=== PATIENT | male | born 1990 | race Caucasian/White ===

== ENCOUNTER 2024-01-03 20:15 | Emergency (ER) | payer SELFPAY ==
[2024-01-03 20:18] VITALS: BP 139/87; PULSE 69; RESP 16; TEMP 36.6; O2SAT 90; BMI 29.8
--- NOTE | 2024-01-03 20:22 | CTR_ITS ---
PROCEDURE INFORMATION: Exam: CT Head Without Contrast Exam date and time: 01/03/2024 9:23 PM Age: 33 years old Clinical indication: Injury or trauma; Fall; Other: Pain; Additional info: Fall, head injury TECHNIQUE: Imaging protocol: Computed tomography of the head without contrast. Radiation optimization: All CT scans at this facility use at least one of these dose optimization techniques: automated exposure control; mA and/or kV adjustment per patient size (includes targeted exams where dose is matched to clinical indication); or iterative reconstruction. COMPARISON: No relevant prior studies available. RADIATION DOSE METRICS: Total DLP (mGy-cm): 701 FINDINGS: Brain: Normal. No hemorrhage. Unremarkable white matter. No mass effect. Cerebral ventricles: No ventriculomegaly. Paranasal sinuses: Visualized sinuses are unremarkable. No fluid levels. Mastoid air cells: Visualized mastoid air cells are well aerated. Bones: Unremarkable. No acute fracture. Soft tissues: Unremarkable. CT/CT head wo con* [id number] IMPRESSION: No acute intracranial abnormality.
--- NOTE | 2024-01-03 20:26 | W.ED.ALCOHOL ---
HPI - Alcohol General: Chief Complaint: Alcohol Stated Complaint: ETOH/SI Time Seen by Provider: 01/03/24 20:19 History of Present Illness: 33-year-old man with past emergency room by ambulance with alcohol intoxication and fall. Apparently fell about 2 feet off of the porch and landed on the ground and rolled down an embankment of about 15 feet. Apparently hit his head. He has some mild abrasions on his extremities. He still appears quite intoxicated. He is not complaining of any pain. He has an abrasion on his head. Related Data Allergies Allergy/AdvReac Type Severity Reaction Status Date / Time hydrocodone Allergy Unknown Verified 01/03/24 20:25 Review of Systems Narrative: Full review of systems unreliable as the patient is quite intoxicated Physical Exam Narrative: EXAM NARRATIVE: General: Alert, no acute distress. Skin: Warm, dry. Head: Normocephalic, atraumatic. Neck: Supple, trachea midline. Eye: Extraocular movements are intact. Ears, nose, mouth and throat: mucosa moist. Cardiovascular: Regular, Normal peripheral perfusion. Respiratory: Lungs are clear to auscultation, respirations are non-labored, breath sounds are equal, Symmetrical chest wall expansion. Gastrointestinal: Soft, Nontender, Non distended Musculoskeletal: Normal ROM, no deformity. Neurological: Alert and oriented, No focal neurological deficit observed. Psychiatric: Patient appears intoxicated Course Vital Signs: Vital signs: Vital Signs Temperature 97.9 F 01/03/24 20:18 Pulse Rate 74 01/03/24 20:54 Respiratory Rate 16 01/03/24 20:54 Blood Pressure 139/87 01/03/24 20:18 Pulse Oximetry 92 01/03/24 20:54 Oxygen Delivery Me thod Room Air 01/03/24 20:18 MDM - Alcohol Medical Decision Making CT head: No acute intracranial process. no intracranial hemorrhage, no evidence of infarct. no evidence of acute fracture.This was reviewed and interpreted by myself the ER physician. Lab work. Sodium is little low. No leukocytosis. No anemia. But had a level was 300. Assessment and plan: Head injury Alcohol intoxication - Discharged home - Discussed plan with patient. Answered any questions. - Evaluation and treatment of this problem were appropriate in the emergency setting. Lab Data 01/03/24 20:40 01/03/24 20:40 Laboratory Results WBC 6.49 10^3/uL (3.29-11.43) 01/03/24 20:40 RBC 5.02 10^6/uL (3.85-5.65) 01/03/24 20:40 Hgb 15.90 g/dL (11.27-16.99) 01/03/24 20:40 Hct 44.8 % (37-53) 01/03/24 20:40 MCV 89.2 fl (82-101) 01/03/24 20:40 MCH 31.7 pg (27-33) 01/03/24 20:40 MCHC 35.5 g/dL (30-55) 01/03/24 20:40 RDW 11.9 % (12.1-15.1) L 01/03/24 20:40 Plt Count 179 10^3/cmm (157-399) 01/03/24 20:40 MPV 9.7 fL (7.4-10.4) 01/03/24 20:40 Neut % (Auto) 60.2 % 01/03/24 20:40 Lymph % (Auto) 29.6 % 01/03/24 20:40 Ballard % (Auto) 8.8 % 01/03/24 20:40 Eos % (Auto) 0.8 % 01/03/24 20:40 Baso % (Auto) 0.3 % 01/03/24 20:40 Neut # (Auto) 3.91 10^3/uL (1.8-7.7) 01/03/24 20:40 Lymph # (Auto) 1.9 10^3/uL (0.8-4.8) 01/03/24 20:40 Ballard # (Auto) 0.6 10^3/uL (0.2-0.9) 01/03/24 20:40 Eos # (Auto) 0.1 10^3/uL (0.0-0.8) 01/03/24 20:40 Baso # (Auto) 0.0 10^3/uL (0.0-0.1) 01/03/24 20:40 Nucleated RBC % (auto) 0 % 01/03/24 20:40 Nucleated RBCs # 0.0 /100WBC 01/03/24 20:40 Sodium 132 mmol/L (136-145) L 01/03/24 20:40 Potassium 3.6 mmol/L (3.5-5.1) 01/03/24 20:40 Chloride 96 mmol/L (98-107) L 01/03/24 20:40 Carbon Dioxide 20 mmol/L (22-29) L 01/03/24 20:40 Anion Gap 19.6 (5-19) H 01/03/24 20:40 BUN 8 mg/dL (6-20) 01/03/24 20:40 Creatinine 0.8 mg/dL (0.7-1.2) 01/03/24 20:40 GFR Calculation 110.0 mL/min (90-130) 01/03/24 20:40 Glucose 108 mg/dL (65-115) 01/03/24 20:40 Calculated Osmolality 273 mOsm/kg (285-295) L 01/03/24 20:40 Calcium 8.2 mg/dL (8.5-10.5) L 01/03/24 20:40 Total Bilirubin 0.8 mg/dL (0.15-1.2) 01/03/24 20:40 AST 93 U/L (0-40) H 01/03/24 20:40 ALT 125 U/L (0-41) H 01/03/24 20:40 Alkaline Phosphatase 80 U/L (40-130) 01/03/24 20:40 Total Protein 7.2 g/dL (6.6-8.7) 01/03/24 20:40 Albumin 4.4 g/dL (3.5-5.2) 01/03/24 20:40 Globulin 2.8 g/dL (1.3-4.6) 01/03/24 20:40 Salicylates < 0.3 mg/dL (3-10) L 01/03/24 20:40 Urine Opiates Screen Negative ng/mL (Negative) 01/03/24 21:06 Acetaminophen < 5.0 ug/mL (10-30) L 01/03/24 20:40 Ur Barbiturates Screen Negative ng/mL (Negative) 01/03/24 21:06 Ur Phencyclidine Scrn Negative ng/mL (Negative) 01/03/24 21:06 Ur Amphetamines Screen Negative ng/mL (Negative) 01/03/24 21:06 U Benzodiazepines Scrn Negative ng/mL (Negative) 01/03/24 21:06 Urine Cocaine Screen Negative ng/mL (Negative) 01/03/24 21:06 U Marijuana (THC) Screen Negative ng/mL (Negative) 01/03/24 21:06 Ethyl Alcohol 302 mg/dL (0-10) H* 01/03/24 20:40 All radiology interpretation(s) finalized by discharge Discharge Plan Discharge Patient Disposition: Home Clinical Impression: Alcoholic intoxication, Head injury Condition: Stable Discharge Orders: Discharge ED (Routine); Ordered 01/03/24 Ordered By: Kiana Chandler Discharge Diet: Usual diet Discharge Activity: Increase activity as tolerated Patient Instructions: Alcohol Intoxication (ED) Activity Restrictions/Additional Instructions: Thank you for choosing [facility] for your healthcare needs today. Please realize this is an emergency room and that we are providing you with a medical screening exam and this may not be complete and all inclusive of all the testing and or work up that you may need to determine your ailment or severity of your illness. You have been screened and evaluated and felt safe for discharge. Health conditions do change or evolve sometimes and as such it is important that you follow up with your Primary Doctor to be re checked, 3-5 days is a general good time frame for follow up. You are always welcome to return to the ED for re assessment if your symptoms are worsening or you have new concerns Coding Level of Care Code ED Director Of Sales for Jade Krause
[2024-01-03 20:54] VITALS: PULSE 74; RESP 16; O2SAT 92
[2024-01-03 20:58] LABS: Basophils % 0.3 %; Eosinophils # 0.1 10^3/uL (0.0-0.8); Eosinophils % 0.8 %; Hematocrit 44.8 % (37-53); Lymphocytes # 1.9 10^3/uL (0.8-4.8); Lymphocytes % 29.6 %; Mean Corpuscular HGB Conc 35.5 g/dL (30-55); Mean Corpuscular Hemoglobin 31.7 pg (27-33); Mean Corpuscular Volume 89.2 fl (82-101); Mean Platelet Volume 9.7 fL (7.4-10.4); Monocytes # 0.6 10^3/uL (0.2-0.9); Monocytes % 8.8 %; Neutrophils # 3.91 10^3/uL (1.8-7.7); Neutrophils % 60.2 %; Nucleated Red Blood Cells % 0 %; Platelet Count 179 10^3/cmm (157-399); Red Blood Count 5.02 10^6/uL (3.85-5.65); Red Cell Distribution Width 11.9 % (12.1-15.1); White Blood Count 6.49 10^3/uL (3.29-11.43)
[2024-01-03 21:13] LABS: Alanine Aminotransferase 125 U/L (0-41); Albumin Level 4.4 g/dL (3.5-5.2); Alkaline Phosphatase 80 U/L (40-130); Anion Gap 19.6 (5-19); Aspartate Amino Transferase 93 U/L (0-40); Blood Urea Nitrogen 8 mg/dL (6-20); Calcium 8.2 mg/dL (8.5-10.5); Carbon Dioxide 20 mmol/L (22-29); Chloride 96 mmol/L (98-107); Creatinine Clr Calc Pharmacy 157.6385; Globulin 2.8 g/dL (1.3-4.6); Glucose 108 mg/dL (65-115); Osmolality Calculated 273 mOsm/kg (285-295); Potassium 3.6 mmol/L (3.5-5.1); Sodium 132 mmol/L (136-145); Total Bilirubin 0.8 mg/dL (0.15-1.2); Total Protein 7.2 g/dL (6.6-8.7)
[2024-01-03 21:15] LABS: Acetaminophen < 5.0 ug/mL (10-30); Alcohol Level 302 mg/dL (0-10); Salicylate < 0.3 mg/dL (3-10)
[2024-01-03 21:18] LABS: Amphetamines Screen Urine Negative (Negative); Barbiturates Screen Urine Negative (Negative); Benzodiazepines Screen Urine Negative (Negative); Cocaine Screen Urine Negative (Negative); Opiate Screen Urine Negative (Negative); PCP Screen Urine Negative (Negative); THC Screen Urine Negative (Negative)
== END 2024-01-03 21:57 | disposition home or self-care (01) ==
PROVIDERS: Emergency Medicine; Emergency Provider Emergency Medicine
DX: S09.90XA Unspecified injury of head, initial encounter (principal); F10.129 Alcohol abuse with intoxication, unspecified; Y90.8 Blood alcohol level of 240 mg/100 ml or more; W17.89XA Other fall from one level to another, initial encounter
CPT/HCPCS: 36415; 70450; 80053; 80306; 80307; 85025; 99284